=== PATIENT | male | born 2000 | race Caucasian/White ===

== ENCOUNTER 2018-07-03 22:49 | Emergency (ER) | payer OTHER ==
[2018-07-03] MEDS ORDERED: LORazepam 1 MG TAB PO ONE (23:06)
[2018-07-03] MEDS ORDERED: hydrOXYzine HCL 25 MG TAB PO ONE (23:16)
--- NOTE | 2018-07-03 23:23 | EDPHY ---
H & P Stated Complaint: ANXIETY Time Seen by Provider: 07/03/18 22:56 HPI/ROS: HPI The patient presents with concern for anxiety attack. The patient developed a sunburn 2 days ago. At 9:00 p.m. Zaira, he was studying at the library and developed increased pain as well as itching from the sunburn on his chest and back. He had progressive itching that became so severe that he could not stay at the library. He became worried that he was developing something called "hell 's rash". He took ibuprofen 1600 mg accidentally, meant to take 800 mg, Benadryl 25 mg, used hydrocortisone cream on his skin. He then took a cold shower for 30 min to see if this would help, it did not. He used aloe vera on his skin as well. He talked to his mom on the phone. He then developed numbness and tingling in his fingers and inability to move his fingers on both of his hands. He had dry heaves. He is here with a friend who brought him in.. REVIEW OF SYSTEMS 10 systems were reviewed and negative with the exception of the elements mentioned in the history of present illness. PMHx: Diagnosed with mononucleosis about 5 weeks ago Soc Hx: College student PHYSICAL General Appearance: Alert, anxious appearing Eyes: Pupils equal and round no pallor or injection ENT, Mouth: Mucous membranes moist Respiratory: Hyperventilating, There are no retractions, lungs are clear to auscultation Cardiovascular: Regular rate and rhythm Gastrointestinal: Abdomen is soft and non-tender, no masses, bowel sounds normal Neurological: A&O, moves all extremities Skin: Warm and dry, erythematous confluent rash of the anterior and posterior upper chest reyes, there is erythema on his cheeks and forehead as well Musculoskeletal: Neck is supple non tender Extremities: symmetrical, full range of motion Psychiatric: Patient is oriented X 3, there is no agitation Source: Patient Exam Limitations: No limitations - Personal History Current Tetanus/Diphtheria Vaccine: Yes - Medical/Surgical History Hx Asthma: No Hx Chronic Respiratory Disease: No Hx Diabetes: No Hx Cardiac Disease: No Hx Renal Disease: No Hx Cirrhosis: No Hx Alcoholism: No Hx HIV/AIDS: No Hx Splenectomy or Spleen Trauma: No Other PMH: MONO - Social History Smoking Status: Current some day smoker Constitutional: Initial Vital Signs Temperature (C) 36.5 C 07/03/18 22:52 Heart Rate 103 H 07/03/18 22:52 Respiratory Rate 18 07/03/18 22:52 Blood Pressure 129/75 H 07/03/18 22:52 O2 Sat (%) 100 07/03/18 22:52 O2 Delivery Mode Room Air Allergies/Adverse Reactions: No Known Allergies Allergy (Unverified 07/03/18 22:53) Home Medications: Medication Instructions Recorded hydrOXYzine HCL [hydrOXYzine HCL 25 mg PO Q6 PRN #15 tab 07/04/18 (RX)] Medical Decision Making Differential Diagnosis: 17-year-old healthy male who appears to be having an anxiety attack in the setting of sunburn sustained 2 days ago which became unexpectedly itchy to him. Here, appears anxious, is hyperventilating, is slightly tachycardic. I have considered anaphylaxis, however see no signs of this. Plan for treatment with Ativan and hydroxyzine. I reassessed the patient after these medications and he is feeling completely better. He feels comfortable going home. I suspect anxiety attack. I have discussed this with him. I have written him a prescription for hydroxyzine which will likely help with his itching as well as anxiety. I have discussed return precautions. - Data Points Medications Given: Discontinued Medications Hydroxyzine HCl (Hydroxyzine Hcl) 50 mg PO EDNOW ONE Stop: 07/03/18 23:46 Last Admin: 07/04/18 00:08 Dose: 50 mg Lorazepam (Ativan) 1 mg PO EDNOW ONE Stop: 07/03/18 23:07 Last Admin: 07/03/18 23:16 Dose: 1 mg Departure - Departure Disposition: Home, Routine, Self-Care Clinical Impression: Anxiety attack, Sunburn, Skin pruritus Condition: Good Instructions: Sunburn (ED), Anxiety (ED), Anxiolysis in Adults (ED) Additional Instructions: Please return to the emergency department if your worse in any way. You can use the prescription I have given you for any ongoing itching or anxiety. Referrals: [facility] Null,. [Clinic] - As per Instructions Stand Alone Forms: School Excuse Prescriptions: hydrOXYzine HCL [hydrOXYzine HCL (RX)] 25 mg PO Q6 PRN #15 tab PRN Reason: Itching
[2018-07-03] MEDS ORDERED: hydrOXYzine HCL 50 MG TAB PO ONE (23:45)
[2018-07-04 00:33] VITALS: BP 128/75
== END 2018-07-04 00:34 | disposition home or self-care (01) ==
DX: F41.9 Anxiety disorder, unspecified (principal); L55.9 Sunburn, unspecified; L29.9 Pruritus, unspecified